=== PATIENT | female | born 1955 | race Caucasian/White ===

== ENCOUNTER → 2017-05-07 | Outpatient (CLI) | payer BC, OTHER ==
[~2017-05-07] MED LIST: ESTR1PAT10 TP; IBUP200C8 PO
[2017-05-07 12:07] LABS: HEMATOCRIT 46.7 % (34.6-47.8); HEMOGLOBIN 15.7 g/dL (11.7-16.4); WHITE BLOOD COUNT 6.8 x10^3/uL (3.4-10)
[2017-05-07 12:14] LABS: BLOOD UREA NITROGEN 9 mg/dL (7-18)
== END | disposition home or self-care (01) ==
LOC: STAR 11:10
PROVIDERS: ATTEND Obstetrics & Gynecology Female Pelvic Medicine and Reconstructive Surgery
DX: Z01.818 Encounter for other preprocedural examination (principal); R94.31 Abnormal electrocardiogram [ECG] [EKG]; N85.2 Hypertrophy of uterus; N95.0 Postmenopausal bleeding; R87.69 Abnormal cytological findings in specimens from other female genital organs
CPT/HCPCS: 36415; 71020; 80048; 85025; 93005

== ENCOUNTER 2017-05-19 05:50 | Day surgery (SDC) | payer BC, OTHER ==
[2017-05-07 12:46] VITALS: BP 122/80
[~2017-05-19] VITALS: Ht 162.6 cm; Wt 69.3 kg
[2017-05-19] MEDS ORDERED: LACTATED RINGERS 1,000 ML IV SCH ×2 (06:37→09:17)
[2017-05-19] MEDS ORDERED: EPINEPHRINE 1 MG/ML, 1ML ONE (06:47)
[2017-05-19] MEDS ORDERED: BUPIVACAINE/PF 0.25% ONE (06:47)
[2017-05-19] MEDS ORDERED: FLUORESCEIN SODIUM 500 MG/5 ML ONE (06:47)
[2017-05-19] MEDS ORDERED: LIDOCAINE 1%, 2ML SQ PRN (07:00)
[2017-05-19] MEDS ORDERED: SCOP1PAT TD (07:01)
[2017-05-19] MEDS ORDERED: MIDAZOLAM 1 MG/ML, 2ML ONE (07:14)
[2017-05-19] MEDS ORDERED: FENTANYL PF 250 MCG/5ML ONE (07:15)
[2017-05-19] MEDS ORDERED: LIDOCAINE GEL 2%, 5ML ONE (07:16)
[2017-05-19] MEDS ORDERED: GLYCOPYRROLATE 0.2MG/1ML, 5ML ONE (07:27)
[2017-05-19] MEDS ORDERED: PROPOFOL 10 MG/ML, 20ML ONE (07:27)
[2017-05-19] MEDS ORDERED: CEFAZOLIN 1,000 MG ONE (07:27)
[2017-05-19] MEDS ORDERED: SUCCINYLCHOLINE 20 MG/ML, 10ML ONE (07:27)
[2017-05-19] MEDS ORDERED: DEXAMETHASONE 4 MG/ML, 1ML ONE (07:27)
[2017-05-19] MEDS ORDERED: ONDANSETRON 2MG/ML, 2ML ONE (07:27)
[2017-05-19] MEDS ORDERED: ROCURONIUM 10 MG/ML,10ML ONE (07:27)
[2017-05-19] MEDS ORDERED: NEOSTIGMINE 1 MG/ML, 10ML ONE (07:27)
[2017-05-19] MEDS ORDERED: PROPOFOL 50 ML ONE ×2 (07:28→08:32)
[2017-05-19] MEDS ORDERED: LIDOCAINE-MPF 2% ,5ML ONE ×3 (07:29→08:34)
[2017-05-19] MEDS ORDERED: METOCLOPRAMIDE 5 MG/ML, 2ML ONE (07:32)
[2017-05-19] MEDS ORDERED: KETOROLAC 30 MG/1 ML ONE (07:32)
[2017-05-19] MEDS ORDERED: EPHEDRINE 50 MG/ML, 1ML ONE (07:42)
[2017-05-19] MEDS ORDERED: MIDAZOLAM 1 MG/ML, 2ML IV PRN (08:30)
[2017-05-19] MEDS ORDERED: OXYcodone 5 MG/5 ML ORAL.SOL UDC PO PRN (08:30)
[2017-05-19] MEDS ORDERED: ONDANSETRON 2MG/ML, 2ML IVPush PRN ×2 (08:30→09:30)
[2017-05-19] MEDS ORDERED: LABETALOL 5MG/ML, 20ML IV PRN (08:30)
[2017-05-19] MEDS ORDERED: hydrALAzine 20 MG/ML, 1ML IV PRN (08:30)
[2017-05-19] MEDS ORDERED: ALBUTEROL/IPRATROPIUM 2.5MG/0.5MG, 3 ML NPPB PRN (08:30)
[2017-05-19] MEDS ORDERED: MEPERIDINE/PF 25MG/0.5ML IVPush PRN (08:30)
[2017-05-19] MEDS ORDERED: LORazepam 2 MG/ML, 1ML IVPush PRN (08:30)
[2017-05-19] MEDS ORDERED: HYDROmorphone 1 MG/ML, 1ML IV PRN (08:30)
[2017-05-19] MEDS ORDERED: FENTANYL PF 100 MCG/2ML IV PRN (08:30)
[2017-05-19] MEDS ORDERED: PROMETHAZINE 25 MG/ML, 1ML IV PRN (08:30)
[2017-05-19] MEDS ORDERED: ACETAMINOPHEN 325 MG TABLET PO PRN (08:30)
[2017-05-19] MEDS ORDERED: OXYcodone/APAP 5/325MG TABLET PO PRN (09:30)
[2017-05-19] MEDS ORDERED: PROMETHAZINE 25 MG SUPP PR ONE (09:30)
[2017-05-19] MEDS ORDERED: IBUPROFEN 600 MG TABLET PO PRN (09:30)
[2017-05-19] MEDS ORDERED: OXYcodone 5 MG/5 ML ORAL.SOL UDC ONE (09:49)
[2017-05-19] MEDS ORDERED: ACETAMINOPHEN 650 MG/20.3 ML UDC ONE (09:49)
[2017-05-19] MEDS ORDERED: FENTANYL PF 100 MCG/2ML ONE (09:49)
== END 2017-05-19 13:10 ==
LOC: OUT 05:50
PROVIDERS: ATTEND Obstetrics & Gynecology Female Pelvic Medicine and Reconstructive Surgery
DX: N93.9 Abnormal uterine and vaginal bleeding, unspecified (principal); N95.0 Postmenopausal bleeding; D25.9 Leiomyoma of uterus, unspecified
CPT/HCPCS: 58552; 88307; C1760; J0171; J0330; J0690; J1100; J1885; J2250; J2405; J2704; J2710; J2765; J3010; J3490